=== PATIENT | female | born 2005 | race Caucasian/White ===

== ENCOUNTER 2024-04-23 21:20 | Emergency (ER) | payer OTHER ==
[2024-04-23 21:40] VITALS: BMI 32.1
[2024-04-23 21:59] VITALS: BP 125/73; PULSE 87; RESP 16; TEMP 98.4
[2024-04-23] MEDS ORDERED: SULFAMETHOXAZOLE/TRIMETHOPRIM 800MG/160MG D.S. TABLET ONE (22:55)
[2024-04-23] MEDS: SULFAMETHOXAZOLE/TRIMETHOPRIM 800MG/160MG D.S. TABLET PO ONE (22:56)
== END 2024-04-23 23:04 | disposition home or self-care (01) ==
LOC: FER 21:20
DX: T51.1X1A Toxic effect of methanol, accidental (unintentional), initial encounter (principal); T23.632A Corrosion of second degree of multiple left fingers (nail), not including thumb, initial encounter; R23.4 Changes in skin texture
CPT/HCPCS: 99283-25